=== PATIENT | female | born 1990 | race Caucasian/White ===

== ENCOUNTER 2023-10-20 12:55 | Outpatient (CLI) | payer OTHER, SELFPAY ==
--- NOTE | 2023-10-20 13:15 | USCV_ITS ---
BennettAubree hopper Age: 32 Gender: F : 1990 Exam Date: 10/20/2023 13:05 Ordering Phys: Marcia Wayne Technologist: FANI Exam Location: [facility] [place] Indication: Calf Pain HISTORY: Lower extremity pain. PROCEDURES: Venous duplex imaging was performed in only the left lower extremity. The following venous structures were evaluated: common femoral vein, profunda vein, proximal portion of the greater saphenous vein, superficial femoral vein, and the popliteal vein. In addition, the posterior tibial and peroneal trunk were evaluated. Serial compression, augmentation maneuvers, and spectral Doppler flow evaluation were performed. FINDINGS: Normal 2-D Doppler and augmentation and compressibility throughout the lower extremity venous structures. Additional imaging through the proximal calf veins also reveals no thrombus. Limited evaluation of the greater saphenous vein is patent with no thrombus. CONCLUSIONS No DVT left lower extremity. Dr. Ann Marie Fernandes DO (Electronically Signed) Final Date: 20 October 2023 14:28 S
== END 2023-10-20 12:56 | disposition home or self-care (01) ==
LOC: RAD 12:55
PROVIDERS: PCP Nurse Practitioner Family; Visit Provider Nurse Practitioner Family
DX: M79.605 Pain in left leg (principal)
CPT/HCPCS: 93971